=== PATIENT | female | born 1960 | race African-American/Black ===

== ENCOUNTER 2016-09-04 13:26 | Emergency (ER) | payer MEDICAID, OTHER ==
[~2016-09-04] VITALS: Ht 154.9 cm; Wt 54.0 kg
[2016-09-04 13:47] VITALS: BP 177/101
[2016-09-04] MEDS ORDERED: DIPHENHYDRAMINE HCL/ZINC ACET 28 GM CREAM TOP STA (18:21)
== END 2016-09-04 23:00 | disposition home or self-care (01) ==
LOC: ER 20:59
DX: T78.40XA Allergy, unspecified, initial encounter (principal); I10 Essential (primary) hypertension; F17.200 Nicotine dependence, unspecified, uncomplicated; Z98.890 Other specified postprocedural states; X58.XXXA Exposure to other specified factors, initial encounter; Y93.89 Activity, other specified; Y92.89 Other specified places as the place of occurrence of the external cause; Y99.8 Other external cause status
CPT/HCPCS: 99282